=== PATIENT | female | born 1960 | race Caucasian/White ===

== ENCOUNTER → 2017-11-08 14:57 | Outpatient (CLI) | payer OTHER, SELFPAY ==
--- NOTE | 2017-11-08 15:01 | BI_ITS ---
MAMMOGRAPHY - BILATERAL DIAGNOSTIC REASON FOR EXAM: Female, 57 years old. Palpable lumps in the right and left breasts. PERTINENT HISTORY: FM HX MOTHER 50'S,SISTER 38, GAIN 50#,, LT ASPIRATION 2003, TECHNIQUE: Digital bilateral breast daniel (3D mammographic acquisition) in the CC and MLO projections. 2-D mediolateral oblique (MLO) and craniocaudad (CC) views of both breasts were obtained. CAD: Full Field Digital Mammography with Computer Added Detection was performed. COMPARISON: April 14, 2012 FINDINGS: Breast Composition: The breasts are heterogeneously dense, which may obscure small masses. Multiple masses are seen in the right breast most have decreased in size since earlier study there is one partially obscured mass appears more prominent seen in the medial aspect of the breast on the cc view is probably located in the inferior medial quadrant for which further evaluation by ultrasound is recommended. 3 new clusters of microvascular lesions are seen at the upper part of the right breast for which magnification views would be recommended. Multiple masses are noted in the left breast most of these masses have regressed since the previous study there is a new mass in the retroareolar region lateral aspect measuring approximately 2 cm for which further evaluation by ultrasound would be recommended . No other significant abnormalities are identified. BI/DIAG MAMM W/CAD, BILAT IMPRESSION: Further mammographic evaluation recommended of the right breast, as described above. (E) Further ultrasonographic evaluation of both breasts recommended, as described above. (I) ASSESSMENT CATEGORY: BIRADS Category 0: Incomplete. Need additional imaging evaluation. A letter regarding these results will be sent to the patient by the facility within 30 days. Approximately 10% of breast cancers are not detected by mammography. A normal mammogram should not delay biopsy of a clinically suspicious abnormality. Electronically Signed: Shraddha Morse MD at 9:54 EDT Tel , Service support ,
== END ==
PROVIDERS: Visit Provider Surgery
DX: N60.09 Solitary cyst of unspecified breast (principal); Z80.3 Family history of malignant neoplasm of breast
CPT/HCPCS: 77062; 77066; G0279

== ENCOUNTER → 2017-11-29 09:05 | Outpatient (CLI) | payer OTHER, SELFPAY ==
--- NOTE | 2017-11-29 09:14 | US_ITS ---
STUDY: ULTRASOUND BREAST - RIGHT REASON FOR EXAM: Female, 57 years old. Bilateral breast nodules. TECHNIQUE: Axial and longitudinal images of the RIGHT breast were performed with a high resolution ultrasound transducer. COMPARISON: Comparison is made with prior mammogram dated November 08, 2017. FINDINGS: RIGHT Breast: There is a 4 mm x 4 mm x 3 mm cyst at the 2:00 position of the breast at 2 cm from the nipple. There is also evidence of a 9 mm x 7 mm x 5 mm cyst at the 5:00 position breast at 2 cm from nipple. IMPRESSION: 2 small cysts are seen at the 3:00 and 5:00 position of the breast as described. ASSESSMENT CATEGORY: BIRADS Category 2: Benign. A letter regarding these results will be sent to the patient by the facility within 30 days. Electronically Signed: Isaak Ambrosio MD at 10:49 EDT Tel [phone], Service support , STUDY: ULTRASOUND BREAST - LEFT REASON FOR EXAM: Female, 57 years old. Bilateral breast nodules. TECHNIQUE: Axial and longitudinal images of the LEFT breast were performed with a high resolution ultrasound transducer. COMPARISON: Comparison is made with prior mammogram dated November 08, 2017. FINDINGS: LEFT Breast: There is a 9 mm x 6 mm x 8 mm cyst at the 5:00 position in the breast at 1 cm from the nipple. Adjacent to this, there is a 4 mm x 3 mm x 2 mm cyst. US/Breast Limited Unilateral IMPRESSION: 2 cysts are seen at the 5:00 position in the breast. ASSESSMENT CATEGORY: BIRADS Category 2: Benign. A letter regarding these results will be sent to the patient by the facility within 30 days. Electronically Signed: Isaak Ambrosio MD at 10:49 EDT Tel [phone], Service support ,
--- NOTE | 2017-11-29 09:14 | BI_ITS ---
MAMMOGRAPHY - UNILATERAL DIAGNOSTIC: RIGHT BREAST REASON FOR EXAM: Female, 57 years old. Abnormal screening mammogram. Assessment of the foci of microcalcifications. PERTINENT HISTORY: Sister with breast cancer. Mother with breast cancer. TECHNIQUE: Digital unilateral breast daniel (3D mammographic acquisition) in the CC and MLO projections. 2-D mediolateral oblique (MLO) and craniocaudad (CC) views of both breasts were obtained. CAD: Full Field Digital Mammography with Computer Added Detection was performed. COMPARISON: Comparison is made with prior mammogram dated November 08, 2017. FINDINGS: Breast Composition: The breasts are heterogeneously dense, which may obscure small masses. A cluster microcalcification is seen in the upper deep mid breast. A cluster of calcifications also seen in the slightly inferior deep retroareolar lesion of the right breast as well. Biopsy is recommended. No other significant abnormalities are identified. BI/DIAG MAMM W/CAD, UNILAT IMPRESSION: 2 focal clusters of microcalcifications seen. Biopsy recommended. ASSESSMENT CATEGORY: BIRADS Category 4: Suspicious - Biopsy Should Be Considered. A letter regarding these results will be sent to the patient by the facility within 30 days. Approximately 10% of breast cancers are not detected by mammography. A normal mammogram should not delay biopsy of a clinically suspicious abnormality. Electronically Signed: Isaak Ambrosio MD at 10:55 EDT Tel [phone], Service support ,
== END ==
PROVIDERS: Visit Provider Surgery
DX: N60.09 Solitary cyst of unspecified breast (principal); R92.8 Other abnormal and inconclusive findings on diagnostic imaging of breast; N63.20 Unspecified lump in the left breast, unspecified quadrant; N63.10 Unspecified lump in the right breast, unspecified quadrant; Z80.3 Family history of malignant neoplasm of breast
CPT/HCPCS: 76642; 77065

== ENCOUNTER → 2018-01-20 11:08 | Outpatient (CLI) | payer OTHER, SELFPAY ==
--- NOTE | 2018-01-20 10:30 | BI_ITS ---
STEREOTACTIC CORE BIOPSY REASON FOR EXAM: Female, 57 years old. Microcalcifications in the upper mid portion of the right breast. PERTINENT HISTORY: Non-contributory. COMPARISON: Comparison is made with prior mammogram dated November 29, 2017 and November 08, 2017. TECHNIQUE: (All elements of maximal sterile barrier technique followed, including US elements as applicable) Upon arrival to the breast imaging department the patient's identification was confirmed and the RIGHT breast was marked according to time-out protocol. Stereotactic core biopsy and clip placement, to include potential risks and complications, was explained in full to the patient. Written and verbal consent were obtained prior to initiation of the procedure. The patient was placed in prone position on the stereotactic biopsy table with the RIGHT breast in craniocaudad compression. [facility] and stereotactic views were then obtained for targeting. The RIGHT breast was prepped and draped in standard sterile fashion and local anesthesia was obtained with 1% buffered lidocaine. A small dermatotomy was then made to introduce the core biopsy needle. Multiple core samples were obtained with a 11 gauge vacuum assisted core biopsy needle. The specimen's were radiographed to determine the presence of calcifications and submitted in formalin for pathology. A titanium clip was then deployed into the biopsy cavity. Upon completion of the procedure hemostasis was obtained and sterile dressing was applied. The patient tolerated the entire procedure without immediate complication and was discharged from the breast imaging department in good condition. BI/Stereo Breast Biopsy [facility]st [facility] IMPRESSION: Stereotactic core biopsy for microcalcifications in the RIGHT breast without complication. Electronically Signed: Isaak Ambrosio MD at 14:44 EDT Tel [phone], Service support ,
--- NOTE | 2018-01-20 11:45 | BRBX_PTH ---
PATIENT: BRANDON PERRY LOC: [facility] U#:[id number] AGE/SX: 65/F ROOM: RE01/20/[address]: Dr. Mattie Calle MD : 1960 BED: DIS: SPEC #: [id number] RECD: 01/20/18 12:36 STATUS: KRAIG ARIELLA #: [id number] AV: 01/20/18 11:[address]: Mattie Calle DEPT: SURGICAL PATHOLOGY RECD BY: Oni Romero ENTERED: 01/20/18 12:47 SP TYPE: BREAST BX OTHR DR: No Primary Care Phys Tissues: Right breast, NOS Procedures: Surgery Specimen Level IV HEADER OPERATION: Right breast stereotactic needle core biopsy PRE-OP DIAGNOSIS: Microcalcifications right upper deep mid breast TISSUE SUBMITTED: Right breast ISCHEMIC TIME: 2 minutes FIXATION TIME: 7.5 hours MICROSCOPIC DIAGNOSIS Right upper deep mid breast, microcalcifications, stereotactic needle core biopsy: Fibrocystic changes, adenosis and intraductal hyperplasia without atypia. Hyalinized fibroadenoma. Frequent microcalcifications. Negative for malignancy. MERT:alfred 01/21/18 COMMENT Calcifications are noted in the area of adenosis and also in the fibroadenoma. Correlation with clinical, radiologic findings and appropriate follow up are necessary. MICROSCOPIC DESCRIPTION Slides are reviewed. GROSS DESCRIPTION Received is one container labeled with the patient's name and not further designated. The specimen consists of multiple elongated fragments of leone-yellow fibroadipose tissue that in aggregate measure 5 x 3 x 1.5 cm. The entire specimen is submitted in eight cassettes. / MERT:alfred 01/20/18 TC:5 CPT: 38529
== END ==
PROVIDERS: Visit Provider Surgery
DX: R92.0 Mammographic microcalcification found on diagnostic imaging of breast (principal); N60.21 Fibroadenosis of right breast; N60.91 Unspecified benign mammary dysplasia of right breast
CPT/HCPCS: 19081; 88305; J7050; A4648